=== PATIENT | male | born 1945 | race Caucasian/White ===

== ENCOUNTER 2020-11-12 15:44 | Emergency (ER) | payer MEDICARE ==
[~2020-11-12] VITALS: Ht 175.3 cm; Wt 61.5 kg
--- NOTE | 2020-11-12 15:47 | NUR ---
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
--- NOTE | 2020-11-12 16:45 | NUR ---
PT HAS HX OF CANCER AND HAD A RECENT DVT TO LEFT ARM, PT C/O L ARM STILL SWOLLEN AND NOW L TORSO IS SWOLLEN. PT TOLD THEM TO COME TO [facility] INSTEAD OF GOING TO [facility].
[2020-11-12] MEDS ORDERED: ONDANSETRON 2MG/ML, 2ML ONE (18:26)
[2020-11-12] MEDS ORDERED: MORPHINE SULFATE 4 MG/ML, 1ML ONE (18:27)
[2020-11-12] MEDS ORDERED: ONDANSETRON 2MG/ML, 2ML IVPush ONE (18:30)
[2020-11-12] MEDS ORDERED: MORPHINE SULFATE 4 MG/ML, 1ML IVPush PRN (18:30)
[2020-11-12] MEDS ORDERED: SODIUM CHLORIDE 0.9%, 500ML IVBOLUS ONE (19:00)
[2020-11-12 19:04] LABS: ANION GAP 8 mmol/L (5-15); CALCIUM 9.1 mg/dL (8.5-10.1); CHLORIDE 99 mmol/L (98-107)
[2020-11-12 19:09] LABS: ALANINE AMINOTRANSFERASE 33 U/L (12-78); ALKALINE PHOSPHATASE 158 U/L (45-117); BILIRUBIN,TOTAL 0.3 mg/dL (0.2-1.0); CREATININE 0.61 mg/dL (0.7-1.3); TOTAL PROTEIN 6.9 g/dL (6.4-8.2)
[2020-11-12 19:12] LABS: PLATELET COUNT 494 x10^3/uL (130-400); RED BLOOD COUNT 3.86 x10^6/uL (4.38-5.82); RED CELL DISTRIBUTION WIDTH 20.5 % (9.4-14.8)
[2020-11-12] MEDS ORDERED: OMNIPAQUE 350 MG/ML, 100ML BOTTLE ONE (19:27)
[2020-11-12 19:57] LABS: BAND#(MANUAL) 0.07 x10^3/uL; BANDS%(MANUAL) 1 % (0-7); BASOS#(MANUAL) 0.07 x10^3/uL (0-0.1); BASOS% (MANUAL) 1 % (0-1); EOS#(MANUAL) 0.14 x10^3/uL (0.0-0.4); EOS% (MANUAL) 2 % (1-7); LYMPH#(MANUAL) 0.79 x10^3/uL (1-3.4); LYMPHS% (MANUAL) 11 % (22-44); MONOS#(MANUAL) 0.86 x10^3/uL (0.3-2.7); MONOS% (MANUAL) 12 % (2-9); SEG#(MANUAL) 5.26 x10^3/uL (1.8-6.8); SEGS% (MANUAL) 73 % (42-75)
[2020-11-12 19:58] LABS: ANISOCYTOSIS 1+
[2020-11-12 19:59] LABS: HYPOCHROMIA 1+; OVALOCYTES 2+
[2020-11-12 20:00] LABS: ECHINOCYTES 1+
[2020-11-12 20:01] LABS: <PLATELET ESTIMATE> INCREASED; <PLT MORPHOLOGY> NORMAL PLT MORPH
[2020-11-12 20:39] VITALS: BP 132/74
== END 2020-11-12 20:42 | disposition home or self-care (01) ==
LOC: ED 20:35
DX: K59.00 Constipation, unspecified (principal); R60.0 Localized edema; J90 Pleural effusion, not elsewhere classified; Z86.718 Personal history of other venous thrombosis and embolism
CPT/HCPCS: 36415; 74177; 80053; 83690; 85025; 96374; 96375; 99285; J2270; J2405; J7040; Q9967